=== PATIENT | male | born 1995 | race Caucasian/White ===

== ENCOUNTER 2019-04-30 10:26 | Emergency (ER) | payer MEDICAID ==
[~2019-04-30] VITALS: Ht 190.5 cm; Wt 99.8 kg
[2019-04-30 10:26] VITALS: BP_SYST 141
--- NOTE | 2019-04-30 10:26 | NUR ---
BROUGHT IN BY [facility] FOR OK TO BOOK, TRIAGED. REPORT GIVEN TO RADHA
--- NOTE | 2019-04-30 10:30 | NUR ---
BIB Officer in custody for medical clearance. Patient C/O left clavicle pain.
--- NOTE | 2019-04-30 10:31 | NUR ---
ER at bedside examining patient.
--- NOTE | 2019-04-30 10:51 | NUR ---
TAKEN TO RADIOLOGY AMBULATORY WITH PT.
--- NOTE | 2019-04-30 10:59 | NUR ---
RETURNED FROM RADIOLOGY, PLACED BACK TO [facility] BED. AT BEDSIDE.
[2019-04-30 11:10] VITALS: BP_SYST 138
--- NOTE | 2019-04-30 11:10 | NUR ---
Patient given written and verbal discharge instructions and verbalizes understanding. ER MD medically cleared patient. ID arm band removed. No Rx given. Patient educated on pain management and to follow up with PMD. Pain Scale 2/10 tolerable for patient[]. Opportunity for questions provided and answered. Patient discharged to Law enforcement.
== END 2019-04-30 11:10 ==
LOC: SED 10:26
DX: S46.912A Strain of unspecified muscle, fascia and tendon at shoulder and upper arm level, left arm, initial encounter (principal); Y04.0XXA Assault by unarmed brawl or fight, initial encounter; Y93.89 Activity, other specified; Y92.89 Other specified places as the place of occurrence of the external cause; Y99.8 Other external cause status
CPT/HCPCS: 73030; 99283

== ENCOUNTER 2019-05-10 18:25 | Emergency (ER) | payer MEDICAID ==
[~2019-05-10] VITALS: Ht 190.5 cm; Wt 99.8 kg
[2019-05-10 20:15] VITALS: BP_SYST 128
[2019-05-10] MEDS ORDERED: FOLIC ACID 1 MG, THIAMINE HCL 100 MG, MAGNESIUM SULFATE 1 GM, MVI 10 ML in NACL 0.9% 1,... IV ONE (23:30)
[2019-05-11] MEDS ORDERED: MVI 10 ML VIAL IV ONE (00:01)
[2019-05-11] MEDS ORDERED: MAGNESIUM SULFATE 1 GM/2 ML VIAL ONE (00:01)
[2019-05-11] MEDS ORDERED: THIAMINE HCL 100 MG/ML VIAL ONE (00:01)
[2019-05-11 00:22] LABS: BASOPHILS # (AUTO) 0.1 K/uL (0.0-0.2); BASOPHILS % (AUTO) 1.5 % (0.0-2.0); EOSINOPHILS # (AUTO) 0.2 K/uL (0.0-0.4); EOSINOPHILS % (AUTO) 2.8 % (0.0-4.0); HEMATOCRIT 40.7 % (36-54); LYMPHOCYTES # (AUTO) 2.6 K/uL (1.0-5.5); LYMPHOCYTES % (AUTO) 37.1 % (20.5-51.5); MEAN CORPUSCULAR HEMOGLOBIN 31 pg (27-31); MEAN CORPUSCULAR HGB CONC 34 % (32-36); MEAN CORPUSCULAR VOLUME 89 fL (79.0-98.0); MONOCYTES # (AUTO) 0.8 K/uL (0.0-1.0); MONOCYTES % (AUTO) 11.3 % (1.7-9.3); NEUTROPHILS # (AUTO) 3.3 K/uL (1.8-7.7); NEUTROPHILS % (AUTO) 47.3 % (40.0-70.0); PLATELET COUNT (AUTO) 249 K/uL (130-430); RED BLOOD CELL COUNT(AUTO) 4.58 MIL/uL (4.2-6.2); RED CELL DISTRIBUTION WIDTH 13.2 % (9.0-15.0)
[2019-05-11 00:32] LABS: ANION GAP 3 (5-15); CALCIUM 8.3 mg/dL (8.4-11.0); CHLORIDE 103 mmol/L (98-107); CREATININE 0.92 mg/dL (0.55-1.30); GLUCOSE 127 mg/dL (70-99); POTASSIUM 3.1 mmol/L (3.5-5.1); SODIUM SERUM 137 mmol/L (136-145); UREA NITROGEN, BLOOD 15 mg/dL (8-21)
[2019-05-11 00:38] LABS: ALANINE AMINOTRANSFERASE 22 U/L (12-78); ALBUMIN 3.3 g/dL (3.4-4.8); ASPARTATE AMINOTRANSFERASE 20 U/L (10-37); GFR AFRICAN AMERICAN 131 mL/min (>90); TOTAL BILIRUBIN 0.6 mg/dL (0.0-1.0)
[2019-05-11 00:39] LABS: ALCOHOL, BLOOD < 3 mg/dL (<10)
[2019-05-11] MEDS ORDERED: POTASSIUM CHLORIDE 20 MEQ TAB.PRT.SR PO ONE (01:00)
[2019-05-11 04:20] VITALS: BP_SYST 122
== END 2019-05-11 04:20 | disposition home or self-care (01) ==
LOC: SED 18:25
DX: E87.6 Hypokalemia (principal); F15.10 Other stimulant abuse, uncomplicated; F17.210 Nicotine dependence, cigarettes, uncomplicated
CPT/HCPCS: 36415; 80053; 83605; 85025; 87040; 96365; 96366; 99283; G0482; J3411; J3475; J7030

== ENCOUNTER 2019-06-23 10:19 | Emergency (ER) | payer MEDICAID ==
[~2019-06-23] VITALS: Ht 193 cm; Wt 99.8 kg
[2019-06-23 10:20] VITALS: BP_SYST 129
--- NOTE | 2019-06-23 10:20 | NUR ---
BROUGHT BACK TO BED #8 AND TRIAGED. REPORT GIVEN TO ARUNA
--- NOTE | 2019-06-23 10:25 | NUR ---
PT STATES HE IS HOMELESS AND HAS COLD SYMPTOMS WITH CONSTIPATION. STATES HE HAS STRUGGLED WITH CONSTIPATION FOR YEARS. 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
--- NOTE | 2019-06-23 10:30 | NUR ---
DR SHAVER AT BEDSIDE FOR EVALUATION
[2019-06-23] MEDS ORDERED: LACTULOSE 20 GM/30 ML UDC PO ONE (11:00)
[2019-06-23] MEDS ORDERED: IBUPROFEN 600 MG TABLET PO ONE (11:00)
--- NOTE | 2019-06-23 12:40 | NUR ---
Refuses offer of detention placement. Given list of available shelters in surrounding areas. Lunch provided. Clean socks provided. hospitality house supervisor notified for ride to [employer].
[2019-06-23 12:41] VITALS: BP_SYST 124
--- NOTE | 2019-06-23 12:41 | NUR ---
Patient given written and verbal discharge instructions and verbalizes understanding. ER MD discussed with patient the results and treatment provided. Patient in stable condition. ID arm band removed. Rx of motrin given. Patient educated on pain management and to follow up with PMD. Pain Scale 8/10, Dr. Roland is aware. Opportunity for questions provided and answered. Medication side effect fact sheet provided.
--- NOTE | 2019-06-23 13:11 | NUR ---
RECEIVED UPDATE BY HOUSE SUP, TRANSPORT WILL ARRIVE IN 45 MINUTES.
--- NOTE | 2019-06-23 13:33 | NUR ---
when taxi arrived, pt was not able to be found. house sup and RN notified.
== END 2019-06-23 12:41 | disposition home or self-care (01) ==
LOC: SED 10:19
DX: K59.00 Constipation, unspecified (principal); M79.641 Pain in right hand; M79.642 Pain in left hand; M79.671 Pain in right foot; M79.672 Pain in left foot; F15.10 Other stimulant abuse, uncomplicated; F17.210 Nicotine dependence, cigarettes, uncomplicated; Z59.0 Homelessness; Z71.6 Tobacco abuse counseling
CPT/HCPCS: 99283

== ENCOUNTER 2019-08-26 14:21 | Emergency (ER) | payer MEDICAID ==
[~2019-08-26] VITALS: Ht 190.5 cm; Wt 99.8 kg
[2019-08-26 14:30] VITALS: BP_SYST 114
--- NOTE | 2019-08-26 14:30 | NUR ---
Patient to ER bed 4 to gown for evaluation. Side rails up.
--- NOTE | 2019-08-26 14:32 | NUR ---
Patient presents to ER C/O right foot painful bump . Patient A&Ox4, ambulatory to ER, temp 99.4, skin pink and hot, right lateral foot deformity noted, pain 10/10 righlateral foot, denies N/V/D. Patient states pain started yesterday, denies trauma.
--- NOTE | 2019-08-26 14:40 | NUR ---
ER Dr. Yates at bedside examining patient.
--- NOTE | 2019-08-26 14:44 | NUR ---
I&D Procedure done by Dr Milan rivera using sterile technique. Lidocaine 1% used. bandaid applied to foot. Scant amt of bleeding noted. Wound care discussed w/ patient. Pt tolerated procedure well.
--- NOTE | 2019-08-26 14:45 | NUR ---
Note undone in EDM - 08/26/19 at 1602 by [email or web address] I&D Procedure done by Dr Milan rivera using sterile technique. Lidocaine 1% used. Wound packed with . bandaid applied to foot. scant amt of bleeding noted. Wound care discussed w/ patient. Pt tolerated procedure well.
[2019-08-26] MEDS ORDERED: NORFLURANE/HFC 245FA 103.5 ML SPRAY TP ONE (15:36)
[2019-08-26] MEDS: ceFAZolin SODIUM 2 GM in D5W 100 ML IV ONE ×2 (15:40→16:10)
[2019-08-26] MEDS ORDERED: ceFAZolin SODIUM 1 GM VIAL ONE (15:50)
--- NOTE | 2019-08-26 16:41 | NUR ---
IV ABX completed. PIV dc'd
--- NOTE | 2019-08-26 17:53 | NUR ---
Patient given written and verbal discharge instructions and verbalizes understanding. ER MD Yates discussed with patient the results and treatment provided. Patient in stable condition. ID arm band removed. Rx of Naproxyn, Keflex given. Patient educated on pain management and to follow up with PMD. Pain Scale 0. Opportunity for questions provided and answered. Medication side effect fact sheet provided.
[2019-08-26 18:01] VITALS: BP_SYST 118
== END 2019-08-26 17:53 | disposition home or self-care (01) ==
LOC: SED 14:21
DX: L03.115 Cellulitis of right lower limb (principal); Z87.821 Personal history of retained foreign body fully removed
CPT/HCPCS: 10061; 36415; 87040; 96365; 99284; J0690; J7060

== ENCOUNTER 2019-09-07 20:39 | Emergency (ER) | payer MEDICAID ==
[~2019-09-07] VITALS: Ht 190.5 cm; Wt 91.6 kg
[2019-09-07 21:07] VITALS: BP_SYST 117
--- NOTE | 2019-09-07 21:15 | NUR ---
Patient triaged and placed in waiting room. VSS and patient appears in no acute distress at this time. Awaiting available bed, and MD notified of need for MSE.
--- NOTE | 2019-09-08 02:48 | NUR ---
Patient to ER bed 3 to gown for evaluation. Side rails up. Report given to LUPILLO Villagomez.
[2019-09-08] MEDS ORDERED: NACL 0.9% 1,000 ML IV ONE (02:49)
[2019-09-08] MEDS ORDERED: KETOROLAC TROMETHAMINE 30 MG VIAL IVP ONE (03:00)
--- NOTE | 2019-09-08 03:08 | NUR ---
Dr. Addison bedside for pt eval
--- NOTE | 2019-09-08 03:10 | NUR ---
Pt BIB self to ED having been Running from police, ran through [employer] fence. Then started having Right rib and hip pain, constipation, swollen feet, left shoulder pain. No other complaints and or injuries noted VSS no s/s of acute distress Resting on [employer] rails up
[2019-09-08 03:40] LABS: BASOPHILS # (AUTO) 0.1 K/uL (0.0-0.2); BASOPHILS % (AUTO) 0.9 % (0.0-2.0); EOSINOPHILS # (AUTO) 0.2 K/uL (0.0-0.4); EOSINOPHILS % (AUTO) 2.1 % (0.0-4.0); HEMATOCRIT 46.8 % (36-54); HEMOGLOBIN 15.5 g/dL (14.0-18.0); LYMPHOCYTES # (AUTO) 2.8 K/uL (1.0-5.5); LYMPHOCYTES % (AUTO) 39.5 % (20.5-51.5); MEAN CORPUSCULAR HEMOGLOBIN 30 pg (27-31); MEAN CORPUSCULAR HGB CONC 33 % (32-36); MEAN CORPUSCULAR VOLUME 90 fL (79.0-98.0); MONOCYTES # (AUTO) 0.7 K/uL (0.0-1.0); NEUTROPHILS # (AUTO) 3.4 K/uL (1.8-7.7); NEUTROPHILS % (AUTO) 47.5 % (40.0-70.0); PLATELET COUNT (AUTO) 300 K/uL (130-430); RED BLOOD CELL COUNT(AUTO) 5.18 MIL/uL (4.2-6.2); RED CELL DISTRIBUTION WIDTH 13.5 % (9.0-15.0); WHITE BLOOD COUNT (AUTO) 7.1 K/uL (4.8-10.8)
[2019-09-08 03:44] LABS: CALCIUM 8.8 mg/dL (8.4-11.0); CREATININE 0.84 mg/dL (0.55-1.30); POTASSIUM 3.6 mmol/L (3.5-5.1)
[2019-09-08 03:50] LABS: ALBUMIN 3.4 g/dL (3.4-4.8); TOTAL BILIRUBIN 0.4 mg/dL (0.0-1.0)
[2019-09-08 03:55] LABS: BILIRUBIN,URINE NEGATIVE (NEGATIVE); BLOOD, URINE NEGATIVE (NEGATIVE); CLARITY/URINE CLEAR (CLEAR); COLOR,URINE YELLOW (YELLOW); GLUCOSE,URINE NEGATIVE (NEGATIVE); KETONES,URINE NEGATIVE (NEGATIVE); LEUKOCYTE ESTERASE ,URINE NEGATIVE (NEGATIVE); NITRITE, URINE NEGATIVE (NEGATIVE); PROTEIN URINE NEGATIVE (NEGATIVE); UROBILINOGEN,URINE 0.2 (0.2-1.0)
--- NOTE | 2019-09-08 05:07 | NUR ---
Lab bedside for 2nd Lactic blood draw
[2019-09-08 06:00] VITALS: BP_SYST 142
--- NOTE | 2019-09-08 06:00 | NUR ---
Patient given written and verbal discharge instructions and verbalizes understanding. ER MD discussed with patient the results and treatment provided. Patient in stable condition. ID arm band removed. IV catheter removed intact and dressing applied, no active bleeding. Rx of Colace and Naprosyn given. Patient educated on pain management and to follow up with PMD. Pain Scale 0/10 Opportunity for questions provided and answered. Medication side effect fact sheet provided.
== END 2019-09-08 06:00 | disposition home or self-care (01) ==
LOC: SED 20:39
DX: S20.211A Contusion of right front wall of thorax, initial encounter (principal); S40.011A Contusion of right shoulder, initial encounter; S70.01XA Contusion of right hip, initial encounter; K59.00 Constipation, unspecified; F17.200 Nicotine dependence, unspecified, uncomplicated; F15.90 Other stimulant use, unspecified, uncomplicated; X58.XXXA Exposure to other specified factors, initial encounter; Y93.02 Activity, running; Y92.89 Other specified places as the place of occurrence of the external cause; Y99.8 Other external cause status
CPT/HCPCS: 36415; 71045; 71100; 74018; 80053; 81003; 82550; 83605; 83690; 84484; 85025; 87040; 96374; 99284; J1885; J7030

== ENCOUNTER 2019-10-02 19:14 | Emergency (ER) | payer MEDICAID ==
[~2019-10-02] VITALS: Ht 188 cm; Wt 99.8 kg
[2019-10-02 19:26] VITALS: BP_SYST 118
== END 2019-10-02 22:00 | disposition home or self-care (01) ==
LOC: SED 19:14
DX: B35.3 Tinea pedis (principal); F15.90 Other stimulant use, unspecified, uncomplicated
CPT/HCPCS: 99282

== ENCOUNTER 2019-11-04 12:57 | Emergency (ER) | payer MEDICAID ==
[~2019-11-04] VITALS: Ht 190.5 cm; Wt 99.8 kg
[2019-11-04 13:28] VITALS: BP_SYST 139
[2019-11-04 15:10] VITALS: BP_SYST 120
[2019-11-04] MEDS ORDERED: AMMONIA INHALANT 0.3mL AMPUL INH ONE (15:24)
== END 2019-11-04 15:13 | disposition home or self-care (01) ==
LOC: SED 12:57
DX: M25.551 Pain in right hip (principal); M25.552 Pain in left hip; F15.90 Other stimulant use, unspecified, uncomplicated
CPT/HCPCS: 73521; 74018; 99284

== ENCOUNTER 2019-12-02 20:22 | Emergency (ER) | payer MEDICAID ==
[~2019-12-02] VITALS: Ht 188 cm; Wt 72.6 kg
[2019-12-02 20:33] VITALS: BP_SYST 135
--- NOTE | 2019-12-02 20:33 | NUR ---
Patient to ER bed 5 to gown for evaluation. Side rails up.
--- NOTE | 2019-12-02 20:36 | NUR ---
Patient ambulated from work complaining of burning sensations on his neck, hips, ribs, back, and feet that started a couple months ago. Patient reports using meth yesterday. Patient states he has pain on his "sides" and rates it a 8 out of 10. Patient reports he has not been able to poop and does not know when his last bowel movement was. Patient denies n/v/d, cough, fever, SOB, chest pain.
--- NOTE | 2019-12-02 21:17 | NUR ---
ER Dr. Hernandez at bedside examining patient.
[2019-12-02] MEDS ORDERED: LORazepam 1 MG TABLET PO ONE (21:30)
--- NOTE | 2019-12-02 21:35 | NUR ---
Patient tolerated medication well. Vital signs stable.
[2019-12-02 21:39] LABS: BARBITURATE, URINE NEGATIVE (NEG <=200); BENZODIAZEPINE, URINE NEGATIVE (NEG <=150); URINE AMPHETAMINE POSITIVE (NEG <=500); URINE METHADONE NEGATIVE (NEG <=200)
[2019-12-02 21:40] LABS: CANNABINOID, URINE NEGATIVE (NEG <=50); COCAINE, URINE NEGATIVE (NEG <=150); METHAMPHETAMINES SCREEN,URINE POSITIVE (NEG <=500); OPIATE, URINE NEGATIVE (NEG <=100); PHENCYCLIDINE SCREEN,URINE NEGATIVE (NEG <=25); UR TRICYCLIC ANTIDEPRESSANTS NEGATIVE (NEG <=300); URINE OXYCODONE SCREEN NEGATIVE (NEG <=100); URINE PROPOXYPHENE SCREEN NEGATIVE (NEG <=300)
--- NOTE | 2019-12-02 22:30 | NUR ---
Patient sleeping comfortably in bed. Vital signs stable.
[2019-12-02 23:00] VITALS: BP_SYST 137
--- NOTE | 2019-12-02 23:00 | NUR ---
Patient given written and verbal discharge instructions and verbalizes understanding. ER MD discussed with patient the results and treatment provided. Patient in stable condition. ID arm band removed. Patient educated on pain management and to follow up with PMD. Pain Scale 0/10 Opportunity for questions provided and answered.
== END 2019-12-02 23:00 | disposition home or self-care (01) ==
LOC: SED 20:22
DX: F15.10 Other stimulant abuse, uncomplicated (principal); Z59.0 Homelessness
CPT/HCPCS: 80307; 99283

== ENCOUNTER 2020-01-08 11:47 | Emergency (ER) | payer MEDICAID ==
[~2020-01-08] VITALS: Ht 190.5 cm; Wt 99.8 kg
[2020-01-08 12:07] VITALS: BP_SYST 123
[2020-01-08 12:48] LABS: BASOPHILS # (AUTO) 0.1 K/uL (0.0-0.2); EOSINOPHILS # (AUTO) 0.1 K/uL (0.0-0.4); EOSINOPHILS % (AUTO) 1.9 % (0.0-4.0); HEMATOCRIT 44.5 % (36-54); HEMOGLOBIN 14.9 g/dL (14.0-18.0); LYMPHOCYTES # (AUTO) 1.8 K/uL (1.0-5.5); LYMPHOCYTES % (AUTO) 24.3 % (20.5-51.5); MEAN CORPUSCULAR HEMOGLOBIN 30 pg (27-31); MEAN CORPUSCULAR HGB CONC 33 % (32-36); MEAN CORPUSCULAR VOLUME 89 fL (79.0-98.0); MONOCYTES # (AUTO) 0.5 K/uL (0.0-1.0); MONOCYTES % (AUTO) 6.4 % (1.7-9.3); NEUTROPHILS # (AUTO) 4.9 K/uL (1.8-7.7); NEUTROPHILS % (AUTO) 66.4 % (40.0-70.0); PLATELET COUNT (AUTO) 298 K/uL (130-430); RED BLOOD CELL COUNT(AUTO) 5.02 MIL/uL (4.2-6.2); RED CELL DISTRIBUTION WIDTH 13.9 % (9.0-15.0); WHITE BLOOD COUNT (AUTO) 7.4 K/uL (4.8-10.8)
[2020-01-08 13:02] LABS: CALCIUM 8.8 mg/dL (8.4-11.0); CREATININE 1.04 mg/dL (0.55-1.30); POTASSIUM 3.4 mmol/L (3.5-5.1)
[2020-01-08 13:07] LABS: ALBUMIN 3.5 g/dL (3.4-4.8); TOTAL BILIRUBIN 0.5 mg/dL (0.0-1.0)
--- NOTE | 2020-01-08 13:36 | NUR ---
Patient to ER bed 04 to gown for evaluation. Side rails up.
--- NOTE | 2020-01-08 13:37 | NUR ---
Patient arrived in the ED c/o generalized weakness for the last week. Denied any chest pain or shortness of breath. Denied any fevers, chills, nausea or vomiting. Patient is alert and oriented x4, respirations even and unlabored, speaking in full sentences, and ambulating with a steady gait. VSS, pain level 0/10. Informed of the approximate wait time. Instructed to notify ED staff for any changes in condition or worsening of symptoms while waiting to be seen by an ED provider. Patient verbalized understanding.
--- NOTE | 2020-01-08 13:38 | NUR ---
ER Dr. Suarez at bedside examining patient.
--- NOTE | 2020-01-08 13:55 | NUR ---
Patient given written and verbal discharge instructions and verbalizes understanding. ER MD discussed with patient the results and treatment provided. Patient in stable condition. ID arm band removed. No Rx given. Patient educated on pain management and to follow up with PMD. Pain Scale 0/10. Opportunity for questions provided and answered. Medication side effect fact sheet provided.
[2020-01-08 13:57] VITALS: BP_SYST 123
== END 2020-01-08 13:55 | disposition home or self-care (01) ==
LOC: SED 11:47
DX: F19.10 Other psychoactive substance abuse, uncomplicated (principal)
CPT/HCPCS: 36415; 80053; 85025; 99283

== ENCOUNTER 2020-03-11 00:20 | Emergency (ER) | payer MEDICAID ==
[~2020-03-11] VITALS: Ht 190.5 cm; Wt 99.8 kg
[2020-03-11 00:25] VITALS: BP_SYST 132
[2020-03-11] MEDS ORDERED: KETOROLAC TROMETHAMINE 30 MG VIAL IM ONE (01:15)
[2020-03-11 01:54] LABS: BASOPHILS # (AUTO) 0.1 K/uL (0.0-0.2); EOSINOPHILS # (AUTO) 0.2 K/uL (0.0-0.4); EOSINOPHILS % (AUTO) 2.2 % (0.0-4.0); HEMATOCRIT 46.2 % (36-54); HEMOGLOBIN 15.5 g/dL (14.0-18.0); LYMPHOCYTES # (AUTO) 3.1 K/uL (1.0-5.5); MEAN CORPUSCULAR HEMOGLOBIN 30 pg (27-31); MEAN CORPUSCULAR HGB CONC 34 % (32-36); MEAN CORPUSCULAR VOLUME 90 fL (79.0-98.0); MONOCYTES % (AUTO) 9.6 % (1.7-9.3); NEUTROPHILS # (AUTO) 5.7 K/uL (1.8-7.7); NEUTROPHILS % (AUTO) 56.2 % (40.0-70.0); PLATELET COUNT (AUTO) 272 K/uL (130-430); RED BLOOD CELL COUNT(AUTO) 5.12 MIL/uL (4.2-6.2); RED CELL DISTRIBUTION WIDTH 14.1 % (9.0-15.0); WHITE BLOOD COUNT (AUTO) 10.1 K/uL (4.8-10.8)
[2020-03-11 02:12] LABS: CALCIUM 9.2 mg/dL (8.4-11.0); CREATININE 1.13 mg/dL (0.55-1.30); POTASSIUM 3.9 mmol/L (3.5-5.1)
[2020-03-11 02:16] LABS: ALBUMIN 3.5 g/dL (3.4-4.8); TOTAL BILIRUBIN 0.4 mg/dL (0.0-1.0)
[2020-03-11 02:45] LABS: INR 0.9 (0.80-1.20); PROTHROMBIN TIME 9.4 SECS (9.5-12.5)
[2020-03-11 03:50] VITALS: BP_SYST 130
== END 2020-03-11 03:50 | disposition home or self-care (01) ==
LOC: SED 00:20
DX: K59.00 Constipation, unspecified (principal)
CPT/HCPCS: 36415; 74176; 80053; 82150; 83690; 85025; 85610; 96372; 99284; J1885